=== PATIENT | male | born 2000 | race American Indian/Alaskan Native ===

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

== ENCOUNTER 2022-06-21 11:44 | Emergency (ER) | payer SELFPAY ==
[2022-06-21 11:50] VITALS: BP 119/61
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
== END 2022-06-21 17:56 | disposition left against medical advice (07) ==
LOC: ED 11:44
DX: T14.8XXA Other injury of unspecified body region, initial encounter (principal); Z53.21 Procedure and treatment not carried out due to patient leaving prior to being seen by health care provider; W34.09XA Accidental discharge from other specified firearms, initial encounter; Y93.89 Activity, other specified; Y92.89 Other specified places as the place of occurrence of the external cause; Y99.8 Other external cause status

== ENCOUNTER 2022-06-21 20:43 | Emergency (ER) | payer SELFPAY ==
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
[2022-06-21] MEDS ORDERED: TETANUS,DIPHTHERIA TOXOID ADULT 0.5 ML INJ IM ONE (23:20)
[2022-06-22 02:06] VITALS: BP 122/73
== END 2022-06-22 02:08 | disposition home or self-care (01) ==
LOC: ED 20:43
DX: S81.832A Puncture wound without foreign body, left lower leg, initial encounter (principal); W34.00XA Accidental discharge from unspecified firearms or gun, initial encounter; Y93.89 Activity, other specified; Y92.89 Other specified places as the place of occurrence of the external cause; Y99.8 Other external cause status
CPT/HCPCS: 90471; 90714; 99282